=== PATIENT | male | born 1940 | race Caucasian/White ===

== ENCOUNTER 2017-05-14 12:35 | Emergency (ER) | payer MEDICARE | END 2017-05-14 13:33 | disposition home or self-care (01) | LOC: EDH 12:35 | DX: S61.032A Puncture wound without foreign body of left thumb without damage to nail, initial encounter (principal); I10 Essential (primary) hypertension; Z98.890 Other specified postprocedural states; Z91.013 Allergy to seafood; Z88.6 Allergy status to analgesic agent; X58.XXXA Exposure to other specified factors, initial encounter; Y93.89 Activity, other specified; Y92.89 Other specified places as the place of occurrence of the external cause; Y99.8 Other external cause status ==

== ENCOUNTER 2017-05-16 13:33 | Emergency (ER) | payer MEDICARE ==
[2017-05-16] MEDS ORDERED: DiphenhydrAMINE HCL 50 MG/ML VIAL ONE (14:59)
== END 2017-05-16 15:30 | disposition home or self-care (01) ==
LOC: EDH 13:33
DX: S61.031A Puncture wound without foreign body of right thumb without damage to nail, initial encounter (principal); R21 Rash and other nonspecific skin eruption; T78.49XA Other allergy, initial encounter; I10 Essential (primary) hypertension; Z88.6 Allergy status to analgesic agent; Z91.013 Allergy to seafood; Z87.891 Personal history of nicotine dependence; Z98.890 Other specified postprocedural states; X58.XXXA Exposure to other specified factors, initial encounter; Y93.89 Activity, other specified; Y92.89 Other specified places as the place of occurrence of the external cause; Y99.8 Other external cause status
CPT/HCPCS: 96372; 99283; J1200

== ENCOUNTER 2020-03-02 17:21 | Inpatient (IN) | payer MEDICARE, OTHER ==
[~2020-03-02] VITALS: Ht 193 cm; Wt 120.1 kg
[2020-03-02 18:29] LABS: EOSINOPHILS % (AUTO) 3.7 % (0.0-8.0); HEMATOCRIT 45.3 % (42-54); LYMPHOCYTES % (AUTO) 32.6 % (21.0-51.0); MEAN CORPUSCULAR HEMOGLOBIN 29.1 pg (27.0-33.0); MEAN CORPUSCULAR HGB CONC 31.6 g/dL (32.0-36.0); MEAN CORPUSCULAR VOLUME 92.3 fL (79-99); NEUTROPHILS % (AUTO) 53.5 % (40.0-77.0); PLATELET COUNT (AUTO) 252 K/uL (130-400); RED BLOOD CELL COUNT(AUTO) 4.91 MIL/uL (4.50-6.20); RED CELL DISTRIBUTION WIDTH 13.4 % (11.0-15.5); WHITE BLOOD COUNT (AUTO) 6.3 K/uL (4.8-10.8)
[2020-03-02 18:37] LABS: CREATININE 1.2 mg/dL (0.5-1.5); POTASSIUM 4.3 mmol/L (3.5-5.1)
[2020-03-02 18:42] LABS: ALBUMIN 3.4 g/dL (3.5-5.0); BILIRUBIN,TOTAL 0.3 mg/dL (0.2-1.0)
[2020-03-02 18:48] LABS: APPEARANCE,URINE TURBID (CLEAR); BILIRUBIN,URINE MODERATE (NEGATIVE); COLOR,URINE RED (YELLOW); GLUCOSE, URINE (UA) NEGATIVE (NEGATIVE); KETONES,URINE 5 mg/dL (NEGATIVE); LEUKOCYTE ESTERASE ,URINE TRACE (NEGATIVE); NITRATE,URINE POSITIVE (NEGATIVE); OCCULT BLOOD,URINE LARGE (NEGATIVE); PH,URINE 6.5 (5.0-8.0); PROTEIN,URINE >=300 mg/dL (NEGATIVE)
[2020-03-02 19:01] LABS: B-TYPE NATRIURETIC PEPTIDE 43 pg/mL (0-100)
[2020-03-02 19:11] LABS: BACTERIA,URINE Few /HPF (None Seen); RBC,URINE TNTC /HPF (0-1)
[2020-03-02] MEDS ORDERED: ONDANSETRON HCL 4 MG/2 ML VIAL IV PRN (20:30)
[2020-03-02] MEDS ORDERED: ACETAMINOPHEN 325 MG TAB PO PRN ×2 (20:30)
[2020-03-02] MEDS ORDERED: HYDRALAZINE HCL 20 MG/ML VIAL IV PRN (20:30)
[2020-03-02] MEDS ORDERED: LACTULOSE 20 GM/30 ML UDCUP PO PRN (20:30)
[2020-03-02] MEDS: CEFTRIAXONE SODIUM 1 GM IVP SCH (21:00)
[2020-03-02 21:14] LABS: INR 0.91 (0.85-1.15); PARTIAL THROMBOPLASTIN TIME 26.8 SEC (26.3-35.5); PROTHROMBIN TIME 9.9 SEC (9.6-11.6)
[2020-03-02] MEDS ORDERED: CEFTRIAXONE SODIUM 1 GM ONE (22:30)
--- NOTE | 2020-03-02 23:49 | NUR ---
ADMISSION NOTES: Admitted to floor via wheelchair from ER. Amb with cane. AOX4. Coherent and very cooperative. Denies feeling of any discomfort. VS checked and recorded. Physical Assessment done. ( See CPOE flow chart for full assessment). Plan of care initiated. Has PIV site to RAC #20 gauge. IVF NS 1L started per order at 100 ml/hr. - patent and intact. Oriented to room and use of call light. Policies and procedures explained. Agreed and verbalized understanding. Per ER staff Dr. Rosen made aware thru doc to doc report and to see the pt in AM. CBI held - to wait for DR. Rosen's order in AM. Home meds to be brought by richi(03/03/20). Needs attended. Kept monitored and observed for any unusual changes. Cared for.
[2020-03-03] VITALS: BP 155/87
[2020-03-03] MEDS: SODIUM CHLORIDE 0.9% 1000ML 1,000 ML IV SCH ×3 (00:15→15:48)
[2020-03-03 00:39] LABS: HEMATOCRIT 41.3 % (42-54)
[2020-03-03 04:00] VITALS: BP 152/71
[2020-03-03 05:16] LABS: BASOPHILS % (AUTO) 1.1 % (0.0-5.0); EOSINOPHILS % (AUTO) 4.6 % (0.0-8.0); HEMATOCRIT 40.3 % (42-54); LYMPHOCYTES % (AUTO) 29.3 % (21.0-51.0); MEAN CORPUSCULAR HEMOGLOBIN 29.3 pg (27.0-33.0); MEAN CORPUSCULAR VOLUME 91.6 fL (79-99); MONOCYTES % (AUTO) 8.3 % (3.0-13.0); NEUTROPHILS % (AUTO) 56.3 % (40.0-77.0); PLATELET COUNT (AUTO) 231 K/uL (130-400); RED CELL DISTRIBUTION WIDTH 13.2 % (11.0-15.5); WHITE BLOOD COUNT (AUTO) 5.7 K/uL (4.8-10.8)
[2020-03-03 05:25] LABS: CREATININE 1.1 mg/dL (0.5-1.5); POTASSIUM 3.8 mmol/L (3.5-5.1)
[2020-03-03 08:00] VITALS: BP 138/82
--- NOTE | 2020-03-03 08:23 | NUR ---
DR WHITT NOTIFIED ABOUT THE PT URINATING MAROON COLOR BLOOD APPROX 300ML. NURSE TO NOTIFY THE DR AND ASK FOR A POC TODAY
[2020-03-03] MEDS: FAMOTIDINE 20MG TAB 20 MG TAB PO SCH (09:07)
[2020-03-03 11:43] VITALS: BP 154/83
[2020-03-03 11:59] LABS: HEMATOCRIT 40.8 % (42-54)
[2020-03-03 16:00] VITALS: BP 145/72
--- NOTE | 2020-03-03 17:50 | NUR ---
DCP CM met with pt discussed dc plans. Pt is independent prior to admission, lives at home with spouse. Pt has a cane. Denies any other equipments/services. Feels safe to go back home, still drives, spouse able to assist with transportation and needs as necessary. DC plan to home once stable. CM to continue to follow up. Addendum: 03/03/20 at 1751 by SANDY NEUMANN LVN CM Amended: Links added.
[2020-03-03 20:00] VITALS: BP 144/60
[2020-03-03] MEDS: CEFTRIAXONE SODIUM 1 GM IVP SCH (20:53)
--- NOTE | 2020-03-03 21:00 | NUR ---
HERMELINDO SANDERSON rounded: Seen and examined pt. with the ff orders: 1. Insert 3-way FC , fr. 22 and start CBI 2. PSA now. Do PSA lab first before inserting FC. 3. CT A/P with contrast richi AM 03/04/20.
[2020-03-04] VITALS: BP 158/73
--- NOTE | 2020-03-04 00:45 | NUR ---
To start CBI: Procedure for FC insertion explained together with my charge nurse. Pt. agreed and verbalized understanding. Hayes inserted using aseptic technique x 2 attempts ( Fr. 22 and Fr. 18 ) but unsuccessful. Pt feels pain during the process of insertion. No more attempts done again to prevent trauma to happen. To inform Urologist later in the morning. Addendum: 03/04/20 at 0353 by CYRUS TOLEDO RN RN No untoward incident happened.
[2020-03-04] MEDS: SODIUM CHLORIDE 0.9% 1000ML 1,000 ML IV SCH ×2 (03:58→22:30)
[2020-03-04 04:00] VITALS: BP 162/72
--- NOTE | 2020-03-04 06:32 | NUR ---
CALLED DR. CASAREZ VIA ANSWERING SERVICE BUT NO REPLY. INFORMED DAY SHIFT RN.
[2020-03-04] MEDS ORDERED: IOHEXOL-350 75 ML VIAL IV ONE (08:48)
[2020-03-04 09:15] VITALS: BP 174/94
[2020-03-04] MEDS: FAMOTIDINE 20MG TAB 20 MG TAB PO SCH (11:24)
[2020-03-04 11:52] VITALS: BP 162/99
[2020-03-04] MEDS ORDERED: LABETALOL 20 MG/4 ML DISP.SYRIN IV PRN (13:45)
[2020-03-04 17:14] VITALS: BP 157/74
[2020-03-04] MEDS: CEFTRIAXONE SODIUM 1 GM IVP SCH (19:39)
[2020-03-04 20:00] VITALS: BP 156/79
[2020-03-05] VITALS (8 sets, daily range): BP systolic 119–174; BP diastolic 68–83
[2020-03-05] MEDS: SODIUM CHLORIDE 0.9% 1000ML 1,000 ML IV SCH ×2 (01:42→08:30)
[2020-03-05 04:50] LABS: BASOPHILS % (AUTO) 0.6 % (0.0-5.0); HEMATOCRIT 43.1 % (42-54); LYMPHOCYTES % (AUTO) 21.9 % (21.0-51.0); MEAN CORPUSCULAR HEMOGLOBIN 29.5 pg (27.0-33.0); MEAN CORPUSCULAR HGB CONC 32.3 g/dL (32.0-36.0); MEAN CORPUSCULAR VOLUME 91.5 fL (79-99); MONOCYTES % (AUTO) 7.6 % (3.0-13.0); NEUTROPHILS % (AUTO) 65.6 % (40.0-77.0); PLATELET COUNT (AUTO) 234 K/uL (130-400); RED BLOOD CELL COUNT(AUTO) 4.71 MIL/uL (4.50-6.20); RED CELL DISTRIBUTION WIDTH 13.1 % (11.0-15.5)
[2020-03-05 05:34] LABS: ALBUMIN 2.9 g/dL (3.5-5.0); BILIRUBIN,TOTAL 0.3 mg/dL (0.2-1.0); CREATININE 1.1 mg/dL (0.5-1.5); POTASSIUM 4.1 mmol/L (3.5-5.1); TOTAL PROTEIN, SERUM 6.4 g/dL (6.0-8.3)
--- NOTE | 2020-03-05 06:24 | NUR ---
patient's total output throughout the night is 3,350 ml total normal saline irrigation is 1,425 ml total urine output is 1,925 ml
[2020-03-05] MEDS: FAMOTIDINE 20MG TAB 20 MG TAB PO SCH (08:16)
--- NOTE | 2020-03-05 16:00 | NUR ---
PATIENT CONT WITH LEAKING ESTRADA CATH , MANUAL IRRIGATED FOR CLOTS . INFORMED CHARGE NURSE MARILEE ON PROBLEMS WITH ESTRADA , PER CN SEVERAL HAVE ATTEMPTED TO INSERT A BIGGER SIZE FOR CBI BUT UNSUCCESSFUL AND MD DR DYSON PLACED A 16FR . WILL CONT OT MANUAL IRRIGATE NEEDED . RECEIVED CALL FROM BHASKAR FROM DR WHYTE OFFICE ,ALSO LET HER KNOW LEAKING PROBLEMS WITH ESTRADA CATH ,PER DR WHYTE WILL DO A CYSTOSCOPY WITH CLOT EVACUATION AND INDICATED PROCEDURES AND WILL CALL OR TO SCHEDULE FOR 729 .
[2020-03-06] VITALS (27 sets, daily range): BP systolic 132–174; BP diastolic 64–80
[2020-03-06] MEDS ORDERED: LABETALOL HCL 5 MG/ML 20ML VIAL IV ONE (00:20)
[2020-03-06] MEDS: CEFTRIAXONE SODIUM 1 GM IVP SCH ×2 (00:23→20:08)
[2020-03-06] MEDS: SODIUM CHLORIDE 0.9% 1000ML 1,000 ML IV SCH ×2 (00:35→17:52)
[2020-03-06 05:11] LABS: BASOPHILS % (AUTO) 0.6 % (0.0-5.0); EOSINOPHILS % (AUTO) 3.4 % (0.0-8.0); LYMPHOCYTES % (AUTO) 23.1 % (21.0-51.0); MEAN CORPUSCULAR HEMOGLOBIN 29.1 pg (27.0-33.0); MEAN CORPUSCULAR HGB CONC 31.7 g/dL (32.0-36.0); MEAN CORPUSCULAR VOLUME 91.6 fL (79-99); MONOCYTES % (AUTO) 7.3 % (3.0-13.0); NEUTROPHILS % (AUTO) 65.4 % (40.0-77.0); PLATELET COUNT (AUTO) 275 K/uL (130-400); RED BLOOD CELL COUNT(AUTO) 5.02 MIL/uL (4.50-6.20); RED CELL DISTRIBUTION WIDTH 13.2 % (11.0-15.5); WHITE BLOOD COUNT (AUTO) 8.2 K/uL (4.8-10.8)
[2020-03-06 05:45] LABS: ALBUMIN 3.4 g/dL (3.5-5.0); BILIRUBIN,TOTAL 0.4 mg/dL (0.2-1.0); CREATININE 1.2 mg/dL (0.5-1.5); POTASSIUM 4.2 mmol/L (3.5-5.1); TOTAL PROTEIN, SERUM 7.2 g/dL (6.0-8.3)
[2020-03-06] MEDS ORDERED: ROCURONIUM 10MG/1ML SYR 10 MG/ML ML ONE (06:31)
[2020-03-06] MEDS ORDERED: FENTANYL CITRATE PF 50 MCG/1 ML 2ML VIAL ONE (06:31)
[2020-03-06] MEDS ORDERED: PROPOFOL 10 MG/ML 20ML VIAL IV ONE ×2 (06:31→08:07)
[2020-03-06] MEDS ORDERED: LIDOCAINE PF 2% 5ML ABBOJECT ONE (06:31)
[2020-03-06] MEDS ORDERED: MIDAZOLAM HCL 1 MG/ML 2ML VIAL ONE (06:31)
[2020-03-06] MEDS ORDERED: ONDANSETRON HCL 4 MG/2 ML VIAL ONE (06:32)
[2020-03-06] MEDS ORDERED: DEXAMETHASONE SOD PHOSPHATE 10MG/ML 1ML VIAL ONE (08:58)
[2020-03-06] MEDS: FAMOTIDINE 20MG TAB 20 MG TAB PO SCH (09:00)
[2020-03-06] MEDS ORDERED: EPHEDRINE SULFATE 50 MG/ML AMPULE ONE (09:04)
[2020-03-06] MEDS ORDERED: MEPERIDINE-PF 25 MG/ML SYG ONE (09:57)
[2020-03-06] MEDS ORDERED: TRAMADOL HCL 50 MG TABLET PO PRN (16:00)
[2020-03-06] MEDS: TRAMADOL HCL 50 MG TABLET PO PRN (17:52)
--- NOTE | 2020-03-06 19:35 | NUR ---
PT. COMPLAINING OF PAIN AND REPORTED THAT ULTRAM IS NOT RESOLVING THE DISCOMFORT. INFORMED ON-CALL HOSPITALIST. PT WAS ASKED IF HE'S OK WITH MORPHINE, SINCE HE HAS AN ALLERGY TO CODEINE. PT REPORTED THAT HE IS OK WITH IT. HOSPITALIST MADE AWARE THEN.
[2020-03-06] MEDS ORDERED: DIPHENHYDRAMINE HCL 25 MG CAPSULE PO PRN (19:45)
[2020-03-06] MEDS: MORPHINE SULFATE 2 MG/ML 1ML SYG IV PRN (20:07)
[2020-03-07] MEDS: MORPHINE SULFATE 2 MG/ML 1ML SYG IV PRN ×2 (02:35→21:24)
[2020-03-07] MEDS: SODIUM CHLORIDE 0.9% 1000ML 1,000 ML IV SCH ×3 (02:41→19:55)
[2020-03-07 04:00] VITALS: BP 141/66
[2020-03-07 05:46] LABS: BASOPHILS % (AUTO) 0.4 % (0.0-5.0); EOSINOPHILS % (AUTO) 1.2 % (0.0-8.0); HEMATOCRIT 37.9 % (42-54); LYMPHOCYTES % (AUTO) 17.1 % (21.0-51.0); MEAN CORPUSCULAR HEMOGLOBIN 29.3 pg (27.0-33.0); MEAN CORPUSCULAR HGB CONC 31.7 g/dL (32.0-36.0); MEAN CORPUSCULAR VOLUME 92.4 fL (79-99); NEUTROPHILS % (AUTO) 71.9 % (40.0-77.0); PLATELET COUNT (AUTO) 213 K/uL (130-400); RED CELL DISTRIBUTION WIDTH 13.2 % (11.0-15.5); WHITE BLOOD COUNT (AUTO) 8.2 K/uL (4.8-10.8)
[2020-03-07 06:13] LABS: ALBUMIN 2.7 g/dL (3.5-5.0); BILIRUBIN,TOTAL 0.3 mg/dL (0.2-1.0); CREATININE 1.2 mg/dL (0.5-1.5); TOTAL PROTEIN, SERUM 5.7 g/dL (6.0-8.3)
[2020-03-07] MEDS: MORPHINE SULFATE 4 MG/1ML SYG IV PRN (06:32)
[2020-03-07 08:30] VITALS: BP 130/68
[2020-03-07] MEDS: FAMOTIDINE 20MG TAB 20 MG TAB PO SCH (09:43)
[2020-03-07] MEDS: TRAMADOL HCL 50 MG TABLET PO PRN ×3 (09:44→23:01)
[2020-03-07 11:09] VITALS: BP 139/70
[2020-03-07] MEDS ORDERED: AMINOCAPROIC ACID 250 MG/ML 20 ML VIAL IV ONE ×2 (16:15→16:45)
[2020-03-07 16:32] VITALS: BP 149/68
[2020-03-07] MEDS ORDERED: AMINOCAPROIC ACID 10,000 MG in SODIUM CHLORIDE 0.9% 1000ML 1,000 ML IV SCH (16:45)
[2020-03-07] MEDS ORDERED: PRAV20TA4 PO (18:50)
[2020-03-07] MEDS ORDERED: DULO30CA52 PO (18:50)
[2020-03-07] MEDS ORDERED: AMLO-258 PO (18:50)
[2020-03-07] MEDS ORDERED: LISI40TA4 PO (18:54)
[2020-03-07] MEDS ORDERED: AMIT25TA9 PO (18:54)
[2020-03-07] MEDS ORDERED: GABA600T10 PO (18:54)
[2020-03-07] MEDS ORDERED: OMEP20CA12 PO (18:54)
[2020-03-07] MEDS ORDERED: AEC81 PO (18:54)
--- NOTE | 2020-03-07 18:56 | NUR ---
CALLED WITH LIST OF HOME MEDS.
[2020-03-07] MEDS: CEFTRIAXONE SODIUM 1 GM IVP SCH (19:55)
[2020-03-07 20:00] VITALS: BP 150/67
[2020-03-08] VITALS (7 sets, daily range): BP systolic 144–158; BP diastolic 65–74
[2020-03-08] MEDS: MORPHINE SULFATE 2 MG/ML 1ML SYG IV PRN (04:14)
[2020-03-08 04:53] LABS: BASOPHILS % (AUTO) 0.5 % (0.0-5.0); EOSINOPHILS % (AUTO) 3.6 % (0.0-8.0); HEMATOCRIT 38.7 % (42-54); LYMPHOCYTES % (AUTO) 17.7 % (21.0-51.0); MEAN CORPUSCULAR HEMOGLOBIN 29.2 pg (27.0-33.0); MEAN CORPUSCULAR HGB CONC 31.3 g/dL (32.0-36.0); MEAN CORPUSCULAR VOLUME 93.5 fL (79-99); MONOCYTES % (AUTO) 8.2 % (3.0-13.0); NEUTROPHILS % (AUTO) 69.7 % (40.0-77.0); PLATELET COUNT (AUTO) 216 K/uL (130-400); RED BLOOD CELL COUNT(AUTO) 4.14 MIL/uL (4.50-6.20); RED CELL DISTRIBUTION WIDTH 13.5 % (11.0-15.5); WHITE BLOOD COUNT (AUTO) 7.3 K/uL (4.8-10.8)
[2020-03-08 05:00] LABS: POTASSIUM 4.1 mmol/L (3.5-5.1)
[2020-03-08] MEDS: SODIUM CHLORIDE 0.9% 1000ML 1,000 ML IV SCH ×2 (05:22→17:51)
[2020-03-08] MEDS: FAMOTIDINE 20MG TAB 20 MG TAB PO SCH (07:58)
[2020-03-08] MEDS: MORPHINE SULFATE 4 MG/1ML SYG IV PRN ×3 (07:58→20:30)
--- NOTE | 2020-03-08 08:00 | NUR ---
PT AAO X 3 REVIEW PLAN OF CARE. PT HAS CONTINOUS BLADDER IRRIGATION. SETUP. WITH A URINE FLOW OF CLEAR YELLOW URINE. REVIEW ANY DISCOMFORT. AND CALL LIGHT IN REACH .
--- NOTE | 2020-03-08 14:39 | NUR ---
DR. CASAREZ HERE AND REVIEW PLAN OF CARE. WITH PT. . AND . EXPLAIN TO PT OF PROCEDURE ,AND DR. ROBERTS
[2020-03-08] MEDS ORDERED: OXYBUTYNIN 5 MG TAB.SR.24H PO SCH (15:00)
[2020-03-08] MEDS: AMINOCAPROIC ACID 500 MG TABLET PO SCH ×2 (16:28→20:29)
--- NOTE | 2020-03-08 18:00 | NUR ---
CONTINOUS BLADDER IRRIGATION D.C PER DR. CASAREZ ORDERS . URINE FLOW OF CLEAR YELLOW URINE , , CALL LIGHT IN REACH FOR CONCERNS .
[2020-03-08] MEDS: OXYBUTYNIN CHLORIDE 5 MG TABLET PO SCH (20:29)
[2020-03-08] MEDS: CEFTRIAXONE SODIUM 1 GM IVP SCH (20:30)
[2020-03-09] MEDS: MORPHINE SULFATE 4 MG/1ML SYG IV PRN ×2 (00:31→06:00)
[2020-03-09] MEDS: OXYBUTYNIN CHLORIDE 5 MG TABLET PO SCH ×3 (02:29→16:53)
[2020-03-09] MEDS: SODIUM CHLORIDE 0.9% 1000ML 1,000 ML IV SCH ×2 (02:29→12:30)
[2020-03-09 04:09] VITALS: BP 157/70
[2020-03-09 07:30] VITALS: BP 162/74
[2020-03-09] MEDS: AMINOCAPROIC ACID 500 MG TABLET PO SCH ×3 (08:11→16:53)
[2020-03-09] MEDS: TRAMADOL HCL 50 MG TABLET PO PRN (08:11)
[2020-03-09] MEDS: FAMOTIDINE 20MG TAB 20 MG TAB PO SCH (08:11)
[2020-03-09 11:00] VITALS: BP 187/67
--- NOTE | 2020-03-09 15:30 | NUR ---
PER INFORMATION. FROM DR. CASAREZ OFFICE . SPOKE WITH STAFF ADELINA , PT WILL BE CALLED FOR MONDAY APPT. TO SEE DR. CASAREZ IN HIS OFFICE,
[2020-03-09 16:00] VITALS: BP 147/70
--- NOTE | 2020-03-09 18:00 | NUR ---
DISCHARGE SUMMARY WAS REVIEW WITH PT. REGARDING HIS APPT. FOLLOWUP CARE ,AND DISCHARGE PRESCRIPTION , MEDICATION. . PT . DISCHARGE WITH ESTRADA C ATHETER , URINE FLOW TO A LEG ESTRADA BAG AND IS SECURE TO HIS RT. THIGH , URINE FLOW OF [place] . COLOR. . REVIEW ESTRADA CATHETER CARE, AND WAS PROVIDED WITH A BIG ESTRADA BAG, AND , LEG ESTRADA BAGS , REVIEW DR. CASAREZ OFFICE WILL BE CALLING HIM, TO SEE HIM IN HIS OFFICE . FOR THE REMOVAL OF ESTRADA CATHETER OF 03/12/20 . SL TO HIS RFA WAS DC ,WITH NO HEMATOMA . OR REDNESS A SM PRESSURE DRSG APPLICATION ON .
== END 2020-03-09 18:00 | disposition home or self-care (01) | DRG 713 ==
LOC: EDH 17:21 → EDHIP 20:21 → 3CH 23:03
PROVIDERS: ADMIT Internal Medicine; ATTEND Internal Medicine
PROC: 0VB08ZZ Excision of Prostate, Via Natural or Artificial Opening Endoscopic (ICD-10-PCS; principal; 2020-03-06 07:30)
PROC: 0TCB8ZZ Extirpation of Matter from Bladder, Via Natural or Artificial Opening Endoscopic (ICD-10-PCS; 2020-03-06 07:30)
DX: N40.0 Benign prostatic hyperplasia without lower urinary tract symptoms (principal); N39.0 Urinary tract infection, site not specified; I10 Essential (primary) hypertension; E11.9 Type 2 diabetes mellitus without complications; E78.5 Hyperlipidemia, unspecified; N32.89 Other specified disorders of bladder; Z96.659 Presence of unspecified artificial knee joint; Z79.82 Long term (current) use of aspirin; Z91.013 Allergy to seafood; Z87.11 Personal history of peptic ulcer disease; Z79.899 Other long term (current) drug therapy; Z88.5 Allergy status to narcotic agent
CPT/HCPCS: 36415; 71045; 74176; 74177; 80048; 80053; 81001; 83880; 84153; 84484; 85014; 85018; 85025; 85610; 85730; 86850; 86900; 86901; 86922; 87088; 93005; A4346; A4351; A4354; G0378; J0696; J1100; J2001; J2175; J2250; J2270; J2405; J2704; J3010; J3490; J7030; Q9967

== ENCOUNTER 2020-10-09 10:52 | Emergency (ER) | payer OTHER, MEDICARE ==
[~2020-10-09] VITALS: Ht 193 cm; Wt 115.7 kg
[~2020-10-09 10:52] MED LIST: AMIT25TA9 PO; AMLO-258 PO; DULO30CA52 PO; GABA600T10 PO; LISI40TA9 PO; OMEP20CA12 PO; PRAV20TA4 PO
[2020-10-09 10:54] VITALS: BP 146/74
[2020-10-09] MEDS ORDERED: SOLU-MEDROL 125MG VIAL IVP SCH (12:00)
[2020-10-09 12:36] LABS: BASOPHILS % (AUTO) 0.5 % (0.0-5.0); HEMATOCRIT 48.5 % (42-54); LYMPHOCYTES % (AUTO) 23.2 % (21.0-51.0); MEAN CORPUSCULAR HEMOGLOBIN 28.7 pg (27.0-33.0); MEAN CORPUSCULAR HGB CONC 31.3 g/dL (32.0-36.0); MEAN CORPUSCULAR VOLUME 91.5 fL (79-99); MONOCYTES % (AUTO) 7.4 % (3.0-13.0); NEUTROPHILS % (AUTO) 66.8 % (40.0-77.0); PLATELET COUNT (AUTO) 273 K/uL (130-400); WHITE BLOOD COUNT (AUTO) 7.4 K/uL (4.8-10.8)
[2020-10-09 12:46] VITALS: BP 141/78
[2020-10-09 13:13] LABS: CREATININE 1.1 mg/dL (0.5-1.5); POTASSIUM 4.9 mmol/L (3.5-5.1)
[2020-10-09 13:20] LABS: ALBUMIN 3.4 g/dL (3.5-5.0); BILIRUBIN,TOTAL 0.5 mg/dL (0.2-1.0); TOTAL PROTEIN, SERUM 7.2 g/dL (6.0-8.3)
[2020-10-09 13:55] VITALS: BP 142/67
[2020-10-09] MEDS ORDERED: CYCL10 PO (15:45)
[2020-10-09] MEDS ORDERED: METH4TAB3 PO (15:45)
[2020-10-09 16:22] VITALS: BP 131/77
== END 2020-10-09 16:25 | disposition home or self-care (01) ==
LOC: EDH 10:52
DX: M51.36 Other intervertebral disc degeneration, lumbar region (principal); M79.18 Myalgia, other site; M25.551 Pain in right hip; Z79.899 Other long term (current) drug therapy; Z88.5 Allergy status to narcotic agent
CPT/HCPCS: 36415; 73502; 80053; 84484; 85025; 96374; 99284; J2930

== ENCOUNTER 2021-03-31 20:47 | Inpatient (IN) | payer MEDICARE, OTHER ==
[~2021-03-31] VITALS: Ht 193 cm; Wt 128.4 kg
[~2021-03-31 20:47] MED LIST changes: +CYCL10TA16 PO; +METH4TAB3 PO
[2021-03-31 21:16] LABS: ABG BASE EXCESS -2.9 mmol/L (-2.0-3.0); ABG OXYGEN SATURATION 92.3 % (95.0-99.0); ABG PCO2 34 mmHg (35-48)
[2021-03-31] MEDS ORDERED: ASPIRIN 325MG TAB PO ONE (21:30)
[2021-03-31 21:31] LABS: BASOPHILS % (AUTO) 0.4 % (0.0-5.0); EOSINOPHILS % (AUTO) 0.6 % (0.0-8.0); LYMPHOCYTES % (AUTO) 9.4 % (21.0-51.0); MEAN CORPUSCULAR HEMOGLOBIN 27.9 pg (27.0-33.0); MEAN CORPUSCULAR HGB CONC 30.2 g/dL (32.0-36.0); MEAN CORPUSCULAR VOLUME 92.2 fL (79-99); NEUTROPHILS % (AUTO) 82.2 % (40.0-77.0); PLATELET COUNT (AUTO) 261 K/uL (130-400); RED BLOOD CELL COUNT(AUTO) 4.88 MIL/uL (4.50-6.20); RED CELL DISTRIBUTION WIDTH 13.2 % (11.0-15.5); WHITE BLOOD COUNT (AUTO) 11.2 K/uL (4.8-10.8)
[2021-03-31 21:43] LABS: CREATININE 1.4 mg/dL (0.5-1.5); POTASSIUM 3.9 mmol/L (3.5-5.1)
[2021-03-31 21:44] LABS: INR 1.02 (0.85-1.15); PROTHROMBIN TIME 11.1 SEC (9.6-11.6)
[2021-03-31 21:48] LABS: ALBUMIN 3.6 g/dL (3.5-5.0); BILIRUBIN,TOTAL 0.4 mg/dL (0.2-1.0); MAGNESIUM 1.9 mg/dL (1.80-2.40); TOTAL PROTEIN, SERUM 7.5 g/dL (6.0-8.3)
[2021-03-31 21:49] LABS: B-TYPE NATRIURETIC PEPTIDE 34 pg/mL (0-100)
[2021-03-31] MEDS ORDERED: DOCU-116 PO (22:27)
[2021-03-31] MEDS ORDERED: GABA-529 PO (22:27)
[2021-03-31] MEDS ORDERED: PRAV40TA3 PO (22:27)
[2021-03-31] MEDS ORDERED: AMIT25TA9 PO (22:27)
[2021-03-31] MEDS ORDERED: OMEP20CA12 PO (22:27)
[2021-03-31] MEDS ORDERED: APIX5TAB PO (22:27)
[2021-03-31] MEDS ORDERED: DULO30CA52 PO (22:27)
[2021-03-31] MEDS ORDERED: LISI40TA9 PO (22:27)
[2021-03-31] MEDS ORDERED: METO-408 PO (22:27)
[2021-03-31] MEDS ORDERED: L.AC1CAP6 PO (22:27)
[2021-03-31] MEDS ORDERED: 0.9%NACL 1000ML 1,000 ML IV ONE (22:30)
[2021-03-31] MEDS ORDERED: DiphenhydrAMINE HCL 50 MG/ML VIAL ONE (22:45)
[2021-03-31] MEDS ORDERED: IOHEXOL 350 MG/ML 100ML INFUS..BTL IV ONE (22:58)
[2021-03-31] MEDS ORDERED: ACETAMINOPHEN 325 MG TAB PO PRN (23:00)
[2021-03-31] MEDS ORDERED: DiphenhydrAMINE HCL 50 MG/ML VIAL IV ONE (23:00)
[2021-03-31] MEDS ORDERED: TRAMADOL HCL 50 MG TABLET PO ONE (23:00)
[2021-03-31] MEDS ORDERED: ONDANSETRON 4MG INJ IV PRN (23:00)
[2021-03-31] MEDS: NITROGLYCERIN 1GM OINT 1 INCH/1GM TD SCH (23:00)
[2021-03-31] MEDS ORDERED: CYCLOBENZAPRINE HCL 10 MG TABLET PO ONE (23:00)
[2021-04-01] MEDS ORDERED: CYCLOBENZAPRINE HCL 10 MG TABLET ONE (01:13)
[2021-04-01] MEDS ORDERED: TRAMADOL HCL 50 MG TABLET ONE (01:13)
[2021-04-01 03:15] VITALS: BP 143/59
[2021-04-01 05:40] LABS: BASOPHILS % (AUTO) 0.1 % (0.0-5.0); HEMATOCRIT 40.5 % (42-54); LYMPHOCYTES % (AUTO) 6.2 % (21.0-51.0); MEAN CORPUSCULAR HEMOGLOBIN 27.8 pg (27.0-33.0); MEAN CORPUSCULAR HGB CONC 30.9 g/dL (32.0-36.0); MEAN CORPUSCULAR VOLUME 90.2 fL (79-99); MONOCYTES % (AUTO) 9.2 % (3.0-13.0); NEUTROPHILS % (AUTO) 84.1 % (40.0-77.0); PLATELET COUNT (AUTO) 247 K/uL (130-400); RED BLOOD CELL COUNT(AUTO) 4.49 MIL/uL (4.50-6.20); RED CELL DISTRIBUTION WIDTH 13.2 % (11.0-15.5); WHITE BLOOD COUNT (AUTO) 12.7 K/uL (4.8-10.8)
[2021-04-01] MEDS: LACTATED RINGERS 1000ML 1,000 ML IV SCH ×2 (06:00→12:20)
[2021-04-01 06:03] LABS: CREATININE 1.4 mg/dL (0.5-1.5); MAGNESIUM 1.9 mg/dL (1.80-2.40); PHOSPHORUS 3.9 mg/dL (2.5-4.9); POTASSIUM 4.3 mmol/L (3.5-5.1)
[2021-04-01 08:00] VITALS: BP 141/62
[2021-04-01] MEDS ORDERED: APIXABAN 5 MG TABLET PO SCH (09:00)
[2021-04-01] MEDS ORDERED: ZOSYN 3.375GM +NS 50ML IV SCH (09:00)
[2021-04-01] MEDS: ASPIRIN 81MG CHEW TAB PO SCH (10:22)
[2021-04-01] MEDS: DOCUSATE SODIUM 100 MG CAP PO SCH (10:23)
[2021-04-01] MEDS: LACTOBACILLUS RHAMNOSUS GG 1 EACH CAP.SPRINK PO SCH (10:23)
[2021-04-01] MEDS: METOPROLOL SUCCINATE 50 MG TAB.SR.24H PO SCH (10:23)
[2021-04-01] MEDS: DULOXETINE HCL 30 MG CAP PO SCH (10:24)
[2021-04-01] MEDS: FAMOTIDINE 20MG TAB PO SCH (10:24)
[2021-04-01] MEDS: GABAPENTIN 100 MG CAPSULE PO SCH ×3 (10:47→21:16)
[2021-04-01] MEDS: NITROGLYCERIN 1GM OINT 1 INCH/1GM TD SCH ×2 (10:49→14:38)
[2021-04-01] MEDS: LISINOPRIL 40 MG TABLET PO SCH (10:49)
[2021-04-01] MEDS ORDERED: DiphenhydrAMINE HCL 50 MG/ML VIAL ONE (11:25)
[2021-04-01] MEDS ORDERED: IPRATROPIUM/ALBUTEROL SULFATE 3 ML SOLUTION IH ONE (11:29)
[2021-04-01] MEDS ORDERED: IPRATROPIUM 0.5 MG/2.5 ML INH IH ONE (11:30)
[2021-04-01] MEDS: SOLU-MEDROL 40MG VIAL IVP SCH (11:30)
[2021-04-01] MEDS: IPRATROPIUM/ALBUTEROL SULFATE 3 ML SOLUTION IH SCH ×2 (11:41→20:28)
[2021-04-01 12:00] VITALS: BP 113/65
[2021-04-01 13:08] LABS: ALBUMIN 2.9 g/dL (3.5-5.0); BILIRUBIN,DIRECT 0.7 mg/dL (0.0-0.3); BILIRUBIN,TOTAL 1.3 mg/dL (0.2-1.0); TOTAL PROTEIN, SERUM 6.6 g/dL (6.0-8.3)
[2021-04-01] MEDS: MEROPENEM 1 GM VIAL IVP SCH ×2 (14:37→21:15)
[2021-04-01 16:00] VITALS: BP 113/65
[2021-04-01 19:00] VITALS: BP 116/49
[2021-04-01] MEDS: ATORVASTATIN 10 MG TABLET PO SCH (21:15)
[2021-04-02] VITALS (7 sets, daily range): BP systolic 122–138; BP diastolic 57–78
[2021-04-02] MEDS: IPRATROPIUM/ALBUTEROL SULFATE 3 ML SOLUTION IH SCH ×5 (00:44→23:33)
[2021-04-02 03:36] LABS: APPEARANCE,URINE Clear (CLEAR); BILIRUBIN,URINE Small (NEGATIVE); COLOR,URINE Dark Yellow (YELLOW); GLUCOSE, URINE (UA) Negative (NEGATIVE); KETONES,URINE Trace mg/dL (NEGATIVE); LEUKOCYTE ESTERASE ,URINE Trace (NEGATIVE); NITRATE,URINE Negative (NEGATIVE); OCCULT BLOOD,URINE Negative (NEGATIVE); PH,URINE 5.5 (5.0-8.0); PROTEIN,URINE POS 2+ mg/dL (NEGATIVE)
[2021-04-02 03:43] LABS: BACTERIA,URINE None Seen /HPF (None Seen); RBC,URINE None Seen /HPF (0-1); SQUAMOUS EPITHELIAL CELL,UR Few /HPF (0-2); WBC,URINE 0-1 /HPF (0-1)
[2021-04-02 06:21] LABS: BASOPHILS % (AUTO) 0.3 % (0.0-5.0); EOSINOPHILS % (AUTO) 1.4 % (0.0-8.0); MEAN CORPUSCULAR HEMOGLOBIN 27.9 pg (27.0-33.0); MEAN CORPUSCULAR HGB CONC 30.7 g/dL (32.0-36.0); MEAN CORPUSCULAR VOLUME 90.7 fL (79-99); MONOCYTES % (AUTO) 5.5 % (3.0-13.0); NEUTROPHILS % (AUTO) 87.4 % (40.0-77.0); PLATELET COUNT (AUTO) 215 K/uL (130-400); RED BLOOD CELL COUNT(AUTO) 4.52 MIL/uL (4.50-6.20); RED CELL DISTRIBUTION WIDTH 13.5 % (11.0-15.5); WHITE BLOOD COUNT (AUTO) 11.8 K/uL (4.8-10.8)
[2021-04-02 06:36] LABS: ALBUMIN 2.8 g/dL (3.5-5.0); BILIRUBIN,TOTAL 1.1 mg/dL (0.2-1.0); CREATININE 1.6 mg/dL (0.5-1.5); MAGNESIUM 1.9 mg/dL (1.80-2.40); POTASSIUM 4.3 mmol/L (3.5-5.1); TOTAL PROTEIN, SERUM 6.5 g/dL (6.0-8.3)
[2021-04-02] MEDS: GABAPENTIN 100 MG CAPSULE PO SCH ×3 (09:29→21:47)
[2021-04-02] MEDS: LISINOPRIL 40 MG TABLET PO SCH (09:29)
[2021-04-02] MEDS: METOPROLOL SUCCINATE 50 MG TAB.SR.24H PO SCH (09:29)
[2021-04-02] MEDS: ASPIRIN 81MG CHEW TAB PO SCH (09:29)
[2021-04-02] MEDS: LACTOBACILLUS RHAMNOSUS GG 1 EACH CAP.SPRINK PO SCH (09:30)
[2021-04-02] MEDS: DOCUSATE SODIUM 100 MG CAP PO SCH (09:30)
[2021-04-02] MEDS: FAMOTIDINE 20MG TAB PO SCH (09:30)
[2021-04-02] MEDS: DULOXETINE HCL 30 MG CAP PO SCH (09:30)
[2021-04-02] MEDS: MEROPENEM 1 GM VIAL IVP SCH ×3 (09:33→21:47)
[2021-04-02 10:25] LABS: CHOLESTEROL 77 mg/dL (<200); HDL CHOLESTEROL 59 mg/dL (29-71); LDL DIRECT 10 mg/dL (0-99); TRIGLYCERIDES 39 mg/dL (30-200)
[2021-04-02] MEDS: SOLU-MEDROL 40MG VIAL IVP SCH (11:51)
[2021-04-02] MEDS: ATORVASTATIN 10 MG TABLET PO SCH (21:47)
[2021-04-03] VITALS (32 sets, daily range): BP systolic 90–159; BP diastolic 43–75
[2021-04-03 06:17] LABS: BASOPHILS % (AUTO) 0.1 % (0.0-5.0); EOSINOPHILS % (AUTO) 1.7 % (0.0-8.0); HEMATOCRIT 39.7 % (42-54); LYMPHOCYTES % (AUTO) 4.2 % (21.0-51.0); MEAN CORPUSCULAR HEMOGLOBIN 27.8 pg (27.0-33.0); MEAN CORPUSCULAR HGB CONC 31.7 g/dL (32.0-36.0); MEAN CORPUSCULAR VOLUME 87.4 fL (79-99); MONOCYTES % (AUTO) 6.7 % (3.0-13.0); PLATELET COUNT (AUTO) 220 K/uL (130-400); RED BLOOD CELL COUNT(AUTO) 4.54 MIL/uL (4.50-6.20); RED CELL DISTRIBUTION WIDTH 13.3 % (11.0-15.5); WHITE BLOOD COUNT (AUTO) 10.8 K/uL (4.8-10.8)
[2021-04-03 06:26] LABS: ALBUMIN 2.6 g/dL (3.5-5.0); BILIRUBIN,TOTAL 0.6 mg/dL (0.2-1.0); CREATININE 1.3 mg/dL (0.5-1.5); TOTAL PROTEIN, SERUM 6.5 g/dL (6.0-8.3)
[2021-04-03] MEDS: MEROPENEM 1 GM VIAL IVP SCH ×3 (06:37→21:37)
[2021-04-03] MEDS: IPRATROPIUM/ALBUTEROL SULFATE 3 ML SOLUTION IH SCH ×5 (07:06→23:37)
[2021-04-03] MEDS: ASPIRIN 81MG CHEW TAB PO SCH (09:00)
[2021-04-03] MEDS: LACTOBACILLUS RHAMNOSUS GG 1 EACH CAP.SPRINK PO SCH (09:00)
[2021-04-03] MEDS: DOCUSATE SODIUM 100 MG CAP PO SCH (09:38)
[2021-04-03] MEDS: METOPROLOL SUCCINATE 50 MG TAB.SR.24H PO SCH (09:39)
[2021-04-03] MEDS: LISINOPRIL 40 MG TABLET PO SCH (09:39)
[2021-04-03] MEDS: GABAPENTIN 100 MG CAPSULE PO SCH ×3 (09:40→20:26)
[2021-04-03] MEDS: DULOXETINE HCL 30 MG CAP PO SCH (09:40)
[2021-04-03] MEDS: FAMOTIDINE 20MG TAB PO SCH (09:40)
[2021-04-03] MEDS ORDERED: FENTANYL CITRATE PF 50 MCG/1 ML 5ML AMP IV ONE (10:25)
[2021-04-03] MEDS ORDERED: PROPOFOL 10 MG/ML 20ML VIAL IV ONE ×2 (10:25→11:37)
[2021-04-03] MEDS ORDERED: BUPIVACAINE/PF 0.5% 30ML VIAL ONE (10:29)
[2021-04-03] MEDS ORDERED: ROCURONIUM 10MG/1ML SYR 10 MG/ML ML ONE (10:38)
[2021-04-03] MEDS ORDERED: ONDANSETRON 4MG INJ ONE (10:39)
[2021-04-03] MEDS ORDERED: MIDAZOLAM HCL 1 MG/ML 2ML VIAL ONE (10:39)
[2021-04-03] MEDS: SOLU-MEDROL 40MG VIAL IVP SCH (11:30)
[2021-04-03] MEDS ORDERED: DEXAMETHASONE SOD PHOSPHATE 10MG/ML 1ML VIAL ONE (12:07)
[2021-04-03] MEDS ORDERED: GLYCOPYRROLATE 1 MG/5 ML SYRINGE ONE (12:08)
[2021-04-03] MEDS ORDERED: NEOSTIGMINE 5MG/5ML SYR IV ONE (12:08)
[2021-04-03] MEDS ORDERED: MEPERIDINE-PF 25 MG/ML SYG ONE ×2 (12:21→14:51)
[2021-04-03] MEDS ORDERED: MORPHINE 2 MG SYG ONE (13:04)
[2021-04-03] MEDS ORDERED: ALBUMIN (HUMAN) 5% 250 ML IV ONE (13:57)
[2021-04-03] MEDS ORDERED: LIDOCAINE 1%-EPI 1:100,000 20 ML VIAL IJ ONE (15:11)
[2021-04-03] MEDS ORDERED: ROPIVACAINE 0.5% 5MG/ML 30ML IJ ONE (15:11)
[2021-04-03] MEDS ORDERED: FENTANYL CITRATE PF 50 MCG/1 ML 2ML VIAL ONE (15:12)
[2021-04-03] MEDS: ATORVASTATIN 10 MG TABLET PO SCH (20:26)
[2021-04-04 03:22] VITALS: BP 145/75
[2021-04-04 04:02] LABS: EOSINOPHILS % (AUTO) 1.9 % (0.0-8.0); HEMATOCRIT 38.4 % (42-54); LYMPHOCYTES % (AUTO) 3.4 % (21.0-51.0); MEAN CORPUSCULAR HEMOGLOBIN 27.4 pg (27.0-33.0); MEAN CORPUSCULAR HGB CONC 30.5 g/dL (32.0-36.0); MEAN CORPUSCULAR VOLUME 89.9 fL (79-99); MONOCYTES % (AUTO) 8.5 % (3.0-13.0); NEUTROPHILS % (AUTO) 85.8 % (40.0-77.0); PLATELET COUNT (AUTO) 227 K/uL (130-400); RED BLOOD CELL COUNT(AUTO) 4.27 MIL/uL (4.50-6.20); RED CELL DISTRIBUTION WIDTH 13.3 % (11.0-15.5); WHITE BLOOD COUNT (AUTO) 8.5 K/uL (4.8-10.8)
[2021-04-04 04:23] LABS: ALBUMIN 2.5 g/dL (3.5-5.0); BILIRUBIN,TOTAL 0.5 mg/dL (0.2-1.0); CREATININE 1.4 mg/dL (0.5-1.5); POTASSIUM 4.4 mmol/L (3.5-5.1); TOTAL PROTEIN, SERUM 6.2 g/dL (6.0-8.3)
[2021-04-04] MEDS: IPRATROPIUM/ALBUTEROL SULFATE 3 ML SOLUTION IH SCH ×4 (06:50→23:09)
[2021-04-04] MEDS: MEROPENEM 1 GM VIAL IVP SCH ×3 (07:20→21:43)
[2021-04-04 08:07] VITALS: BP 150/72
[2021-04-04] MEDS: GABAPENTIN 100 MG CAPSULE PO SCH (09:33)
[2021-04-04] MEDS: DOCUSATE SODIUM 100 MG CAP PO SCH (09:33)
[2021-04-04] MEDS: DULOXETINE HCL 30 MG CAP PO SCH (09:34)
[2021-04-04] MEDS: METOPROLOL SUCCINATE 50 MG TAB.SR.24H PO SCH (09:34)
[2021-04-04] MEDS: FAMOTIDINE 20MG TAB PO SCH (09:34)
[2021-04-04] MEDS: LISINOPRIL 40 MG TABLET PO SCH (09:34)
[2021-04-04] MEDS: LACTOBACILLUS RHAMNOSUS GG 1 EACH CAP.SPRINK PO SCH (09:35)
[2021-04-04] MEDS: SOLU-MEDROL 40MG VIAL IVP SCH ×2 (09:35→09:40)
[2021-04-04] MEDS ORDERED: KETOROLAC 15MG/ML VIAL (15MG/ML) IV PRN (10:30)
[2021-04-04 11:12] VITALS: BP 112/51
[2021-04-04] MEDS: GABAPENTIN 300 MG CAPSULE PO SCH ×2 (14:32→21:43)
[2021-04-04 16:41] VITALS: BP 144/64
[2021-04-04 20:27] VITALS: BP 137/61
[2021-04-04] MEDS: ATORVASTATIN 10 MG TABLET PO SCH (21:43)
[2021-04-05 00:02] VITALS: BP 140/57
[2021-04-05 04:02] VITALS: BP 138/64
[2021-04-05] MEDS: IPRATROPIUM/ALBUTEROL SULFATE 3 ML SOLUTION IH SCH ×3 (06:23→18:38)
[2021-04-05] MEDS: MEROPENEM 1 GM VIAL IVP SCH ×2 (06:27→14:30)
[2021-04-05] MEDS: GABAPENTIN 300 MG CAPSULE PO SCH ×2 (06:27→14:00)
[2021-04-05 06:54] LABS: BASOPHILS % (AUTO) 0.1 % (0.0-5.0); EOSINOPHILS % (AUTO) 0.6 % (0.0-8.0); HEMATOCRIT 35.6 % (42-54); LYMPHOCYTES % (AUTO) 11.9 % (21.0-51.0); MEAN CORPUSCULAR HEMOGLOBIN 27.8 pg (27.0-33.0); MEAN CORPUSCULAR HGB CONC 30.9 g/dL (32.0-36.0); MEAN CORPUSCULAR VOLUME 89.9 fL (79-99); MONOCYTES % (AUTO) 10.2 % (3.0-13.0); NEUTROPHILS % (AUTO) 76.8 % (40.0-77.0); PLATELET COUNT (AUTO) 221 K/uL (130-400); RED BLOOD CELL COUNT(AUTO) 3.96 MIL/uL (4.50-6.20); RED CELL DISTRIBUTION WIDTH 13.5 % (11.0-15.5); WHITE BLOOD COUNT (AUTO) 6.9 K/uL (4.8-10.8)
[2021-04-05 07:23] LABS: ALBUMIN 2.2 g/dL (3.5-5.0); BILIRUBIN,TOTAL 0.4 mg/dL (0.2-1.0); CREATININE 1.3 mg/dL (0.5-1.5); POTASSIUM 3.6 mmol/L (3.5-5.1)
[2021-04-05 07:30] VITALS: BP 144/66
[2021-04-05 08:14] LABS: MAGNESIUM 2.5 mg/dL (1.80-2.40)
[2021-04-05] MEDS: DULOXETINE HCL 30 MG CAP PO SCH (09:51)
[2021-04-05] MEDS: FAMOTIDINE 20MG TAB PO SCH (09:52)
[2021-04-05] MEDS: DOCUSATE SODIUM 100 MG CAP PO SCH (09:52)
[2021-04-05] MEDS: METOPROLOL SUCCINATE 50 MG TAB.SR.24H PO SCH (09:52)
[2021-04-05] MEDS: LISINOPRIL 40 MG TABLET PO SCH (09:52)
[2021-04-05] MEDS: LACTOBACILLUS RHAMNOSUS GG 1 EACH CAP.SPRINK PO SCH (09:52)
[2021-04-05] MEDS: SOLU-MEDROL 40MG VIAL IVP SCH (09:53)
[2021-04-05 11:00] VITALS: BP 132/62
[2021-04-05 16:00] VITALS: BP 137/64
[2021-04-05 20:27] VITALS: BP 142/72
[2021-04-05] MEDS: ATORVASTATIN 10 MG TABLET PO SCH (20:47)
[2021-04-05] MEDS ORDERED: PANTOPRAZOLE 40 MG TAB DR PO SCH (21:00)
[2021-04-05] MEDS ORDERED: AMITRIPTYLINE 25 MG TABLET PO SCH (21:00)
== END 2021-04-05 23:35 | disposition home or self-care (01) | DRG 854 ==
LOC: EDH 20:47 → EDHIP 22:41 → OBSVTOIN 22:41 → 3AH 04-01 02:35 → 4AH 04-03 15:50
PROVIDERS: ADMIT Internal Medicine; ATTEND Internal Medicine
PROC: 5A09357 Assistance with Respiratory Ventilation, Less than 24 Consecutive Hours, Continuous Positive Airway Pressure (ICD-10-PCS; 2021-04-02)
PROC: 5A09357 Assistance with Respiratory Ventilation, Less than 24 Consecutive Hours, Continuous Positive Airway Pressure (ICD-10-PCS; 2021-04-03)
PROC: 0FT44ZZ Resection of Gallbladder, Percutaneous Endoscopic Approach (ICD-10-PCS; principal; 2021-04-03 10:25)
PROC: 5A09357 Assistance with Respiratory Ventilation, Less than 24 Consecutive Hours, Continuous Positive Airway Pressure (ICD-10-PCS; 2021-04-04)
PROC: 5A09357 Assistance with Respiratory Ventilation, Less than 24 Consecutive Hours, Continuous Positive Airway Pressure (ICD-10-PCS; 2021-04-05)
DX: A41.9 Sepsis, unspecified organism (principal); K81.0 Acute cholecystitis; N17.9 Acute kidney failure, unspecified; E66.01 Morbid (severe) obesity due to excess calories; I48.0 Paroxysmal atrial fibrillation; G47.33 Obstructive sleep apnea (adult) (pediatric); K21.9 Gastro-esophageal reflux disease without esophagitis; K82.A1 Gangrene of gallbladder in cholecystitis; Z20.822 Contact with and (suspected) exposure to COVID-19; E11.40 Type 2 diabetes mellitus with diabetic neuropathy, unspecified; G89.29 Other chronic pain; I10 Essential (primary) hypertension; E78.5 Hyperlipidemia, unspecified; I45.10 Unspecified right bundle-branch block; K82.8 Other specified diseases of gallbladder; R53.81 Other malaise; Z68.34 Body mass index [BMI] 34.0-34.9, adult; E78.00 Pure hypercholesterolemia, unspecified; K66.0 Peritoneal adhesions (postprocedural) (postinfection); Z96.653 Presence of artificial knee joint, bilateral; I25.2 Old myocardial infarction; Z79.01 Long term (current) use of anticoagulants; Z79.899 Other long term (current) drug therapy; Z86.74 Personal history of sudden cardiac arrest; Z87.891 Personal history of nicotine dependence; Z87.11 Personal history of peptic ulcer disease; Z88.5 Allergy status to narcotic agent; Z88.0 Allergy status to penicillin; Z91.013 Allergy to seafood; Z80.0 Family history of malignant neoplasm of digestive organs; Z82.49 Family history of ischemic heart disease and other diseases of the circulatory system; R06.89 Other abnormalities of breathing
CPT/HCPCS: 36415; 36600; 71045; 71275; 76705; 78226; 80048; 80053; 80061; 80076; 81001; 82550; 82803; 82948; 83605; 83690; 83735; 83880; 84100; 84145; 84484; 85025; 85378; 85610; 87040; 87635; 88304; 93005; 94640; 94660; 94664; 97039; A9537; C9803; G0378; J1100; J1200; J1885; J2175; J2185; J2250; J2405; J2543; J2704; J2710; J2795; J2920; J3010; J3490; J7030; J7120; P9045; Q9967